=== PATIENT | male | born 1980 | race Caucasian/White ===

== ENCOUNTER 2022-04-09 10:25 | Emergency (ER) | payer OTHER ==
[~2022-04-09] VITALS: Ht 185.4 cm; Wt 81.6 kg
[2022-04-09] MEDS ORDERED: PROZAC (10:41)
[2022-04-09] MEDS ORDERED: HUMIRA (10:41)
[2022-04-09] MEDS ORDERED: NEXIUM (10:41)
[2022-04-09] MEDS ORDERED: EMGALITY (10:42)
[2022-04-09] MEDS ORDERED: MELOXICAM (10:42)
[2022-04-09] MEDS ORDERED: VITAMINS (10:42)
[2022-04-09] MEDS ORDERED: IV NORMAL SALINE 1000 ML BAG IV ONE (10:45)
[2022-04-09 11:00] LABS: HEMATOCRIT 40.3 % (36.7-47.1); MEAN CORPUSCULAR HEMOGLOBIN 30.7 uug (23.8-33.4); MEAN CORPUSCULAR VOLUME 90.9 fL (73.0-96.2); PLATELET COUNT (AUTO) 171 K/uL (152-348)
[2022-04-09] MEDS ORDERED: MAG HYDROX/AL HYDROX/SIMETH 30 ML LIQUID UDC PO ONE (11:00)
[2022-04-09] MEDS ORDERED: FAMOTIDINE 20 MG TABLET PO ONE (11:00)
[2022-04-09] MEDS ORDERED: FAMOTIDINE 20 MG TABLET ONE (11:00)
[2022-04-09] MEDS ORDERED: MAG HYDROX/AL HYDROX/SIMETH 30 ML LIQUID UDC ONE (11:00)
[2022-04-09 11:09] LABS: CARBON DIOXIDE 30 mmol/L (21-32); CHLORIDE 105 mmol/L (98-107); CREATININE 1.1 mg/dL (0.6-1.3); GLUCOSE 100 mg/dL (74-106); POTASSIUM 4.2 mmol/L (3.5-5.1); UREA NITROGEN, BLOOD 24 mg/dL (7-18)
[2022-04-09 11:13] LABS: BILIRUBIN,DIRECT 0.1 mg/dL (0.0-0.2); BILIRUBIN,TOTAL 0.4 mg/dL (0.2-1.0)
[2022-04-09 11:44] LABS: THYROID STIMULATING HORMONE 0.561 mIU/mL (0.358-3.740)
[2022-04-09 12:04] VITALS: BP 114/60
--- NOTE | 2022-04-09 12:05 | NUR ---
patient reassess condition stable d/c home with instructions after care reviewed understood left er via self ambulatory with steady gait, no chest pain.vss
== END 2022-04-09 12:13 | disposition home or self-care (01) ==
LOC: ER 10:25
DX: R07.89 Other chest pain (principal); K21.9 Gastro-esophageal reflux disease without esophagitis; M45.9 Ankylosing spondylitis of unspecified sites in spine; F41.9 Anxiety disorder, unspecified; Z79.899 Other long term (current) drug therapy
CPT/HCPCS: 99285; 71045; 80076; 80048; 83880; 83690; 84443; 85025; 85379; 85730; 84484; 36415; 93005; J7040; A4663